=== PATIENT | female | born 1965 | race Caucasian/White ===

== ENCOUNTER 2018-01-08 14:03 | Emergency (ER) | payer OTHER ==
[2018-01-08 14:57] VITALS: BP 142/88; PULSE 74; TEMP 98.2; BMI 35.4
--- NOTE | 2018-01-08 15:37 | PDOC ---
History of Present Illness - General History Source: Patient Exam Limitations: No Limitations - History of Present Illness Initial Comments: 01/08/18 16:34 The patient is a 52 year old female with a significant PMH of type 2 diabetes, HTN, and breast cancer s/p chemo and radiation who presents to the emergency department with left knee pain for the past 3 weeks. The patient states she had an injury approximately two weeks ago. The patient states she slipped down the steps while she was washing her patio and sustained the fall on the right hip. The patient reports she was unaware if she also injured her left knee during that fall but states she has been experiencing the left knee pain since the fall. The patient denies tingling, numbness or weakness in her lower extremities. The patient states she is on preventative cancer meds that are known for blood clots as a possible side effect and is concerned this may be associated with her left knee pain. The patient denies any history of blood clots. Patient has been taking motrin at home with minimal relief. The patient denies chest pain, cough, hemoptysis, shortness of breath, headache and dizziness. Denies fever, chills, nausea, vomit, diarrhea and constipation. Denies dysuria, frequency, urgency and hematuria. Allergies: NKA Past surgical history: None reported Social history: No reported alcohol, drug, or cigarette use. <Alice Ramos - Last Filed: 01/08/18 16:34> <Jesus Renteria - Last Filed: 01/08/18 17:23> - General Chief Complaint: Pain Stated Complaint: LEFT KNEE PAIN X 2 WEEKS Time Seen by Provider: 01/08/18 15:13 Past History <Alice Ramos - Last Filed: 01/08/18 16:34> - Past Medical History Cancer: Yes (LEFT BREAST (LYMPHEDEMA RESULTING)) Cardiac Disorders: Yes (PALPITATIONS) COPD: No Diabetes: Yes (NO MEDS) GI Disorders: Yes (HEMORRHOIDS, ANAL ITCH) HTN: Yes Liver Disease: Yes (HEPATIC STEATOSIS) Psychiatric Problems: Yes (DEPRESSION, INSOMNIA) Other medical history: KELOID, CAUDA EQUINA SYNDROME, INTERTRIGO, BACK PAIN, BRAIN LESION - Suicide/Smoking/Psychosocial Hx Smoking History: Never smoked Hx Alcohol Use: No Drug/Substance Use Hx: No <Jesus Renteria - Last Filed: 01/08/18 17:23> - Past Medical History Allergies/Adverse Reactions: Allergies Allergy/AdvReac Type Severity Reaction Status Date / Time No Known Allergies Allergy Verified 01/08/18 14:08 Home Medications: Ambulatory Orders Exemestane [Aromasin -] 25 mg PO DAILY 01/08/18 Ibuprofen [Motrin -] 400 mg PO TID PRN 01/08/18 Loratadine [Claritin -] 10 mg PO DAILY PRN 01/08/18 Lorazepam [Ativan] 1 mg PO HS PRN 01/08/18 Losartan Potassium [Cozaar -] 50 mg PO DAILY 01/08/18 Review of Systems - Review of Systems Able to Perform ROS?: Yes Comments:: 01/08/18 16:34 Constitutional - no reported Fever, Chills, HEENT: no reported vision changes, sore throat Respiratory: no reported cough, sob, hemoptysis Cardiac: no reported chest pain, palpitations, light headedness, leg swelling Abd/GI: no reported abd pain, nausea, vomiting, blood per rectum, melena, diarrhea : no reported dysuria, frequency, discharge Musculskelatal - +L knee pain no reported back pain, joint swelling skin - no reported bruising, erythema, rash neurological: no reported headache, numbness, focal weakness, tingling, ataxia, hematologic: no reported easy bruising, easy bleeding <Alice Ramos - Last Filed: 01/08/18 16:34> *Physical Exam - Vital Signs Last Vital Signs Temp Pulse Resp BP Pulse Ox 98.2 F 74 16 142/88 96 01/08/18 14:07 01/08/18 14:07 01/08/18 14:07 01/08/18 14:07 01/08/18 14:07 - Physical Exam Comments: 01/08/18 16:35 GENERAL: The patient is awake, alert, and fully oriented, Nontoxic - in no acute distress. HEAD: Normocephalic, atraumatic. EYES: extraocular movements intact, sclera anicteric, conjunctiva clear. ENT: Normal voice, Moist mucous membranes. NECK: Normal range of motion, supple LUNGS: Breath sounds equal, clear to auscultation bilaterally. No wheezes, no rhonchi, no rales. HEART: Regular rate and rhythm, normal S1 and S2 without murmur, rub or gallop. ABDOMEN: Soft, nontender, normoactive bowel sounds. No guarding, no rebound. . No CVA tenderness EXTREMITIES: Normal ROM, no focal bony tenderness on thigh, hip, knee, johns/ ankle. mild diffuse tenderness to L knee. mild edema noted. senatio intact throught, NEUROLOGICAL: No facial assymetry, Normal speech, PSYCH: Normal mood, normal affect. SKIN: Warm, Dry, normal turgor, <Montse Ramossy - Last Filed: 01/08/18 16:34> - Vital Signs Last Vital Signs Temp Pulse Resp BP Pulse Ox 98.2 F 74 16 142/88 96 01/08/18 14:07 01/08/18 14:07 01/08/18 14:07 01/08/18 14:07 01/08/18 14:07 <Jesus Renteria - Last Filed: 01/08/18 17:23> Medical Decision Making - Medical Decision Making 01/08/18 15:38 52y F breast ca s/p chemo/radiotion, dm, htn, presents with complaint of L knee pain - pt notes pain L knee pain approx 3 weeks ago, pt recalls falling just prior to the pain starting, but notes she didnt think she hurt her knee - had slipped when washing her patio, landing on her R behind. She has been having worsening pain on the medial aspect of her L knee since then without associated numbnes/stingling/ewakness. no sob/cp/hemoptysis. suspect knee strain consider dvt as pt has breast ca will obtain xray to r/o fx us to r/o dvt A portion of this note was documented by scribe services under my direction. I have reviewed the details of the note, within reason, and agree with the documentation with the following case summary and management plan written by me 01/08/18 17:18 pts xray negative for fx US neg for DVT but noted for signifcant amt of complex fluid along anterolateral aspect of L knee - will have pt fu with orthopedics for further evaluation will give pt copy of her US I discussed the physical exam findings, ancillary test results and final diagnoses with the patient. I answered all of the patient's questions. The patient was satisfied with the care received and felt comfortable with the discharge plan and treatment plan. The patient will call their primary care physician within 24 hours to arrange follow-up and will return to the Emergency Department with any new, persistent or worsening symptoms. <Jesus Renteria - Last Filed: 01/08/18 17:23> *DC/Admit/Observation/Transfer - Attestations Scribe Attestion: 01/08/18 16:35 Documentation prepared by Alice Raoms, acting as medical supply technician for Jesus Renteria MD. <Alice Ramos - Last Filed: 01/08/18 16:34> - Discharge Dispostion Decision to Admit order: No <Jesus Renteria - Last Filed: 01/08/18 17:23> Diagnosis at time of Disposition: Knee pain, left Qualifiers: Chronicity: acute Qualified Code(s): M25.562 - Pain in left knee - Discharge Dispostion Disposition: HOME Condition at time of disposition: Good - Referrals Referrals: Antony Sims MD [Staff Physician] - - Patient Instructions Printed Discharge Instructions: DI for Knee Pain Additional Instructions: Your ultrasound was noted for some fluid along your left nee. This may represent a ruptured cyst or an effusion. Please follow up with an orthopedic doctor for further evlaluation. Take motrin/tylenol as needed for pain. A copy of your US was included, please review this with your doctor. Keep your leg elevated to prevent swelling. Rest. Print Language: TURKMEN
[2018-01-08] MEDS ORDERED: ACETAMINOPHEN 325 MG TABLET (FP) PO ONE (15:43)
[2018-01-08] MEDS ORDERED: ACETAMINOPHEN 325 MG TABLET (FP) ONE (16:37)
== END 2018-01-08 17:30 | disposition home or self-care (01) ==
LOC: FER 14:03
DX: M25.562 Pain in left knee (principal); W10.9XXA Fall (on) (from) unspecified stairs and steps, initial encounter; Y93.89 Activity, other specified; Y92.009 Unspecified place in unspecified non-institutional (private) residence as the place of occurrence of the external cause
CPT/HCPCS: 73562-TC-LT-FY; 93971-TC; 99282-25

== ENCOUNTER 2018-08-09 19:20 | Emergency (ER) | payer OTHER ==
[2018-08-09 19:30] VITALS: PULSE 85; TEMP 98.4; BMI 34.7
--- NOTE | 2018-08-09 19:57 | PDOC ---
History of Present Illness - History of Present Illness Initial Comments: 08/09/18 21:04 Patient is a 53 year old female with a significant past medical history of HTN, Type 2 diabetes, Breast CA, who presents to the ED with complaints of left face numbness that began x2 hours prior to ED arrival. Patient reports experiencing left facial numbness and swelling shortly after eating a piece of chocolate. She reports coming into the ED for further evaluation after becoming worried that she might be experiencing a stroke. Patient reports having a MRI test conducted earlier today, and states her neck was in an uncomfortable position. She reports left facial numbness, tenderness and swelling has subsided slightly since arriving to the ED. Denies chest pain, sob. Denies nausea, vomiting, Denies fevers, chills. Denies dysuria, hematuria. Denies trauma to affected area. Denies loss of consciousness. Denies constipation, diarrhea. Denies contact with sick individuals, out of state travelling. Denies any other symptoms. Allergies: None Social history: No smoking. No alcohol. No illicit drugs. Surgical history: Gallbladder. PMD: None Adult ROS General: No fevers or chills, no weakness, no weight loss HEENT: +Left sided facial numbness. +Left sided facial edema. No change in vision. No sore throat, No ear pain Cardiovascular: No chest pain or shortness of breath Respiratory:No cough, or wheezing. Gastrointestinal: No nausea, vomiting, diarrhea or constipation, No rectal bleeding Genitourinary: No dysuria, hematuria, or frequency Musculoskeletal: No joint or muscle pain or swelling Neurologic: No headache, vertigo, dizziness or loss of consciousness Psychiatric: No depression Skin: No rashes or easy bruising Endocrine: No increased thirst or abnormal weight change Allergic: No skin or latex allergy All other systems reviewed and normal Adult PE General: Well-nourished well-developed individual, no acute distress HEENT: +Mild swelling over area of left parotid. No tenderness. No rash. No erythema or warmth. No palpable stones in the parotid. Throat: Normal, tonsils normal, no erythema or exudate Neck: Supple, no meningeal signs, no lymphadenopathy Eyes:Pupils equal reactive and round, extraocular motion intact Chest: Nontender to palpation Cardiac: S1-S2 normal, regular rate and rhythm, no murmurs rubs or gallops Respiratory: Lungs clear to auscultation bilateral Abdomen: Soft, nondistended, normal bowel sounds, nontender to palpation diffusely Extremities: Warm, dry, no cyanosis, clubbing, or edema Skin: No rashes Neuro: Alert and oriented x3, nonfocal exam, grossly intact, normal gait Psych: Normal mood and affect <Akira Nunez - Last Filed: 08/09/18 21:04> - General History Source: Patient Exam Limitations: No Limitations - History of Present Illness Initial Comments: 08/09/18 21:12 A portion of this note was documented by scribe services under my direction. I have reviewed the details of the note, within reason, and agree with the documentation with the following case summary and management plan written by me. Patient treated in the ED. Nursing notes are reviewed and incorporated into the medical decision-making. Vital signs reviewed. Assessment and plan: This is a 53-year-old female who comes in complaining of Numbness and tingling sensation in the area of her trigeminal nerve on the left. Patient denied any injury or trauma to the area. Patient denied any history of similar symptoms in the past. Patient said that it began after she ate some candy. Patient also complaining of some mild swelling in the area On my exam patient was neurologically intact, there was no rashes consistent with herpes zoster at this time. There is no palpable stone of the parotid. I think this most likely pre-herpes zoster however could also be a stone of the parotid gland. Patient given ENT follow-up and a prescription for acyclovir was sent to her pharmacy and she was told to get it filled and start taking if she developed any rash or blistering in the area <Elpidio Loyd I - Last Filed: 08/09/18 21:15> - General Stated Complaint: SWELLING TO LEFT SIDE OF JAW AFTER EATING CANDY Time Seen by Provider: 08/09/18 19:38 Past History <Akira Nunez - Last Filed: 08/09/18 21:04> - Past Medical History Cancer: Yes (LEFT BREAST (LYMPHEDEMA RESULTING)) Cardiac Disorders: Yes (PALPITATIONS) COPD: No Diabetes: Yes (NO MEDS) GI Disorders: Yes (HEMORRHOIDS, ANAL ITCH) HTN: Yes Liver Disease: Yes (HEPATIC STEATOSIS) Psychiatric Problems: Yes (DEPRESSION, INSOMNIA) - Suicide/Smoking/Psychosocial Hx Smoking History: Never smoked Have you smoked in the past 12 months: No Information on smoking cessation initiated: No Hx Alcohol Use: No Drug/Substance Use Hx: No <Elpidio Loyd I - Last Filed: 08/09/18 21:15> - Past Medical History Allergies/Adverse Reactions: Allergies Allergy/AdvReac Type Severity Reaction Status Date / Time No Known Allergies Allergy Verified 08/09/18 19:22 Home Medications: Ambulatory Orders Exemestane [Aromasin -] 25 mg PO DAILY 01/08/18 Lorazepam [Ativan] 1 mg PO HS PRN 01/08/18 Acyclovir [Zovirax -] 800 mg PO 5XD #35 tablet 08/09/18 *Physical Exam - Vital Signs Last Vital Signs Temp Pulse Resp BP Pulse Ox 98.4 F 85 16 157/108 H 97 08/09/18 19:26 08/09/18 19:26 08/09/18 19:26 08/09/18 20:23 08/09/18 19:26 <Akira Nunez - Last Filed: 08/09/18 21:04> - Vital Signs Last Vital Signs Temp Pulse Resp BP Pulse Ox 98.4 F 85 16 169/108 H 97 08/09/18 19:26 08/09/18 19:26 08/09/18 19:26 08/09/18 19:26 08/09/18 19:26 <Elpidio Loyd I - Last Filed: 08/09/18 21:15> Moderate Sedation - Procedure Monitoring Vital Signs: Procedure Monitoring Vital Signs Temperature 98.4 F 08/09/18 19:26 Pulse Rate 85 08/09/18 19:26 Respiratory Rate 16 08/09/18 19:26 Blood Pressure 157/108 H 08/09/18 20:23 O2 Sat by Pulse Oximetry (%) 97 08/09/18 19:26 <Akira Nunez - Last Filed: 08/09/18 21:04> - Procedure Monitoring Vital Signs: Procedure Monitoring Vital Signs Temperature 98.4 F 08/09/18 19:26 Pulse Rate 85 08/09/18 19:26 Respiratory Rate 16 08/09/18 19:26 Blood Pressure 169/108 H 08/09/18 19:26 O2 Sat by Pulse Oximetry (%) 97 08/09/18 19:26 <Elpidio Loyd I - Last Filed: 08/09/18 21:15> *DC/Admit/Observation/Transfer - Attestations Scribe Attestion: 08/09/18 21:04 Documentation prepared by Akira Nunez, acting as registered medical assistant for Elpidio Loyd MD. <Akira Nunez - Last Filed: 08/09/18 21:04> - Discharge Dispostion Decision to Admit order: No <Elpidio Loyd I - Last Filed: 08/09/18 21:15> Diagnosis at time of Disposition: Trigeminal anesthesia - Discharge Dispostion Disposition: HOME Condition at time of disposition: Stable - Prescriptions Prescriptions: Acyclovir [Zovirax -] 800 mg PO 5XD #35 tablet - Patient Instructions Additional Instructions: call ENT Quiana Gutierres in the morning phone is [phone]. I sent a prescription to the pharmacy for her shingles so if you develop a rash or any blisters in the area of the numbness get the prescription filled and start taking it as directed. Return to the emergency department immediately with ANY new, persistent or worsening symptoms. Continue any medications as previously prescribed by your physician. You should follow up with your primary doctor as soon as possible regarding today's emergency department visit. . Please make sure your doctor reviews the results of your emergency evaluation. Thank you for coming to the Emergency Department today for your care. It was a pleasure to see you today. Please note that your evaluation is INCOMPLETE until you follow-up with your doctor.
[2018-08-09 20:23] VITALS: BP 157/108
== END 2018-08-09 21:02 | disposition home or self-care (01) ==
LOC: FER 19:20
DX: G50.0 Trigeminal neuralgia (principal); R20.0 Anesthesia of skin; R00.2 Palpitations; I10 Essential (primary) hypertension; E88.89 Other specified metabolic disorders; F32.9 Major depressive disorder, single episode, unspecified; Z85.3 Personal history of malignant neoplasm of breast
CPT/HCPCS: 72156-TC; 72157-TC; 72158-TC; 99281-25; C1887

== ENCOUNTER 2019-09-21 16:11 | Emergency (ER) | payer OTHER ==
[2019-09-21 16:29] VITALS: BP 134/96; PULSE 87; TEMP 98.2; BMI 33.6
--- NOTE | 2019-09-21 16:51 | PDOC ---
History of Present Illness - General Chief Complaint: Nausea/Vomiting Stated Complaint: STOMACH PAIN FOR a couple of days vomiting diarrh Time Seen by Provider: 09/21/19 16:24 History Source: Patient Exam Limitations: No Limitations - History of Present Illness Travel History: No Initial Comments: 09/21/19 16:54 54y F hx of htn, NIDDM, HL presents With approximately 4 days of vomiting, diarrhea, intermittent epigastric pain. Patient states that she began to have several episodes of nonbilious nonbloody vomiting, loose watery light brown stool without signs of blood or melena as well as intermittent epigastric nonradiating sharp abdominal discomfort. Patient states that the symptoms have been getting worse, she denies any associated fever or chills. Patient denies any chest pain, shortness of breath, leg swelling. The pain does not seem to be exacerbated by food intake. There is no exertional nature to this pain. Patient denies having any similar episodes of this discomfort in the past. Patient states she did travel to [place] last week and got pack approximately 7 days ago and was fine for about 4 days before this started. No known sick contacts. PMD in [place] surgical hx: cholecystecotmy ROS: Constitutional - no reported Fever, Chills, HEENT: no reported vision changes, sore throat Respiratory: no reported cough, sob, hemoptysis Cardiac: no reported chest pain, palpitations, light headedness, leg swelling Abd/GI: +abd pain, nausea, vomiting, diarrhea no reported blood per rectum, melena : no reported dysuria, frequency, discharge Musculskelatal - no reported back pain, joint swelling skin - no reported bruising, erythema, rash neurological: no reported headache, numbness, focal weakness, tingling, ataxia, hematologic: no reported easy bruising, easy bleeding exam: GENERAL: The patient is awake, alert, and fully oriented, Nontoxic - in no acute distress. HEAD: Normocephalic, atraumatic. EYES: extraocular movements intact, sclera anicteric, conjunctiva clear. ENT: Normal voice, Moist mucous membranes. NECK: Normal range of motion, supple LUNGS: Breath sounds equal, clear to auscultation bilaterally. No wheezes, no rhonchi, no rales. HEART: Regular rate and rhythm, normal S1 and S2 without murmur, rub or gallop. ABDOMEN: Soft, nontender, No guarding, no rebound. No CVA tenderness EXTREMITIES: Normal range of motion, no edema. NEUROLOGICAL: No facial assymetry, Normal speech, PSYCH: Normal mood, normal affect. SKIN: Warm, Dry, normal turgor, Differential for the for the patient's symptoms includes possible gastritis/ gastroenteritis, Due to possible pancreatitis, No focal tenderness to suggest appendicitis or diverticulitis. Will obtain blood work, will treat the patient with fluids, Zofran, Pepcid, Maalox EKG to screen for arrhythmia Will reassess 09/21/19 18:26 Past History - Past Medical History Allergies/Adverse Reactions: Allergies Allergy/AdvReac Type Severity Reaction Status Date / Time No Known Allergies Allergy Verified 09/21/19 16:13 Home Medications: Ambulatory Orders Exemestane [Aromasin -] 25 mg PO DAILY 01/08/18 Amlodipine Besylate 10 mg PO DAILY 09/21/19 metFORMIN HCL [Metformin HCl ER] 750 mg PO DAILY 09/21/19 Cancer: Yes (LEFT BREAST (LYMPHEDEMA RESULTING)) Cardiac Disorders: Yes (PALPITATIONS) COPD: No Diabetes: Yes GI Disorders: Yes (HEMORRHOIDS, ANAL ITCH) HTN: Yes Liver Disease: Yes (HEPATIC STEATOSIS) Psychiatric Problems: Yes (DEPRESSION, INSOMNIA) - Surgical History Appendectomy: Yes Cholecystectomy: Yes - Psycho Social/Smoking Cessation Hx Smoking History: Never smoked Have you smoked in the past 12 months: No Information on smoking cessation initiated: No Hx Alcohol Use: No Drug/Substance Use Hx: No *Physical Exam - Vital Signs Last Vital Signs Temp Pulse Resp BP Pulse Ox 98.2 F 87 18 134/96 98 09/21/19 16:13 09/21/19 16:13 09/21/19 16:13 09/21/19 16:13 09/21/19 16:13 Heart Score/ECG Review - ECG Impressions Comment:: 09/21/19 18:25 Twelve-lead EKG was performed and reviewed by me. There is normal sinus rhythm with a normal rate. Rate of 69 Q waves in lead III and aVF T wave inversion lead III, May be an anatomic variant No prior EKG for comparison ED Treatment Course - LABORATORY CBC & Chemistry Diagram: 09/21/19 17:10 09/21/19 17:10 Medical Decision Making - Medical Decision Making 09/21/19 18:06 The patient's blood work was reviewed Noted for slightly elevated LFTs. The patient is currently asymptomatic does not have any abdominal pain, Abdomen is soft nontender We will continue to assess the patient awaiting for lipase. Suspect her symptoms may be secondary to gastroenteritis. 09/21/19 18:26 The patient's lipase is negative patient is feeling improved abdomen is soft nontender I will discharge patient with supportive care at home Return precautions were discussed I discussed the physical exam findings, ancillary test results and final diagnoses with the patient. I answered all of the patient's questions. The patient was satisfied with the care received and felt comfortable with the discharge plan and treatment plan. The patient will call their primary care physician within 24 hours to arrange follow-up and will return to the Emergency Department with any new, persistent or worsening symptoms. Discharge - Discharge Information Problems reviewed: Yes Clinical Impression/Diagnosis: Gastroenteritis Condition: Improved Disposition: HOME - Admission No - Follow up/Referral - Patient Discharge Instructions Patient Printed Discharge Instructions: DI for Vomiting -- Adult, DI for Abdominal Pain-Adult Additional Instructions: Return to the emergency department immediately with ANY new, persistent or worsening symptoms including worsening abdominal pain, fevers, inability to tolerate oral intake, chest pain, shortness of breath or any other concerns. Stay well hydrated. You MUST call and follow up with your doctor tomorrow. Your emergency department visit is not complete without a followup with your doctor for reevaluation. Please make sure your doctor reviews the results of your emergency evaluation. Print Language: GRENADIAN - Post Discharge Activity
[2019-09-21] MEDS ORDERED: FAMOTIDINE 20 MG/50 ML IVPB 20 MG in PREMIX 50 IVPB ONE (16:53)
[2019-09-21] MEDS ORDERED: ONDANSETRON 4 MG/2 ML VIAL IVPB ONE (16:53)
[2019-09-21] MEDS ORDERED: MAG HYDROX/AL HYDROX/SIMETH -MYLANTA- ORAL SUSPENSION PO ONE (16:53)
[2019-09-21] MEDS ORDERED: SODIUM CHLORIDE 1,000 ML IV ONE (16:53)
[2019-09-21] MEDS ORDERED: FAMOTIDINE 20 MG/50 ML IVPB 20 MG/50 ML MG IVPB ONE (17:02)
[2019-09-21] MEDS ORDERED: ONDANSETRON 4 MG/2 ML VIAL ONE (17:02)
[2019-09-21 17:27] LABS: BASO % 0.5 % (0-2.0); EOS % 0.8 % (0-4.5); HEMATOCRIT 49.1 % (32.4-45.2); HEMOGLOBIN 16.4 GM/dl (10.7-15.3); LYMPH % 24.9 % (8-40); MCH 30.7 pg (25.7-33.7); MCHC 33.4 g/dl (32.0-36.0); MEAN PLT VOLUME 9.5 fl (7.5-11.1); MONO % 12.8 % (3.8-10.2); PLATELET COUNT 204 K/MM3 (134-434); RBC 5.34 M/mm3 (3.60-5.2); RDW 11.9 % (11.6-15.6); WHITE BLOOD COUNT 6.7 K/mm3 (4.0-10.8)
[2019-09-21] MEDS ORDERED: MAG HYDROX/AL HYDROX/SIMETH 30 ML UNIT-DOSE CUP ONE (17:34)
[2019-09-21 17:37] LABS: ALBUMIN 4.4 g/dl (3.4-5.0); BILIRUBIN,TOTAL 0.9 mg/dl (0.2-1); CALCIUM 9.8 mg/dl (8.5-10); CREATININE 0.7 mg/dl (0.55-1.3); POTASSIUM 4.1 mmol/L (3.5-5.1); TOT PROT 7.8 g/dl (6.4-8.2)
[2019-09-21 17:50] LABS: EPITHELIAL CELLS FEW /hpf
--- NOTE | 2019-09-22 12:52 | EKG ---
Test Reason : Blood Pressure : / mmHG Vent. Rate : 069 BPM Atrial Rate : 069 BPM P-R Int : 152 ms QRS Dur : 094 ms QT Int : 406 ms P-R-T Axes : 013 -03 019 degrees QTc Int : 435 ms NORMAL SINUS RHYTHM MINIMAL VOLTAGE CRITERIA FOR LVH, MAY BE NORMAL VARIANT NO PREVIOUS ECGS AVAILABLE Confirmed by WILLIAM RAMAN MD ([id number]) on 09/22/2019 12:51:52 PM Referred By: DR NOBLE Confirmed By:WILLIAM RAMAN MD
== END 2019-09-21 18:45 | disposition home or self-care (01) ==
LOC: FER 16:11
PROC: 3E033GC Introduction of Other Therapeutic Substance into Peripheral Vein, Percutaneous Approach (ICD-10-PCS; principal; 2019-09-21)
DX: K52.9 Noninfective gastroenteritis and colitis, unspecified (principal); E11.9 Type 2 diabetes mellitus without complications; E78.5 Hyperlipidemia, unspecified; I10 Essential (primary) hypertension
CPT/HCPCS: 36415; 80053; 81003; 81015; 83690; 85025; 93005; 96365; 99284-25; J7030